=== PATIENT | female | born 1985 | race Caucasian/White ===

== ENCOUNTER 2017-03-11 13:54 | Emergency (ER) | payer OTHER ==
[2017-03-11 14:07] VITALS: BP 104/74
--- NOTE | 2017-03-11 14:08 | ED Physician Documentation ---
Sore Throat/Dental Pain - HISTORIAN Historian: patient - HPI Chief Complaint: Sore Throat Additional Information: 31yo white female who yesterday developed a sore throat. Today feels achy all over, has had some fever and chills. No cough noted. Had one episode of vomiting yesterday. No diarrhea noted. No nasla drainage. Son with URI illness last week. Denies pregenancy, has Polycystic ovarian disease. Associated Symptoms: fever (not sure how high), chills, sore throat, moderate. denies: unable to swallow, runny nose, congestion, R ear pain, L ear pain, cough - ROS CONST: other (Polycystic ovarian disease) CVS/RESP: none - PAST HX Past History: other (PCOD) Other History: none Immunizations: denies: influenza Allergies/Adverse Reactions: Allergies Allergy/AdvReac Type Severity Reaction Status Date / Time No Known Allergies Allergy Verified 03/11/17 14:06 Home Medications: Ambulatory Orders Medication Instructions Recorded Amoxicillin [Trimox] 500 mg PO TID #30 capsule 03/11/17 - SOCIAL HX Smoking History: non-smoker Alcohol Use: rarely Drug Use: none - FAMILY HX Family History: No - VITAL SIGNS Vital Signs: Vital Signs Temp Pulse Resp BP Pulse Ox 130/68 03/17/15 00:10 - REVIEWED ASSESSMENTS Nursing Assessment Reviewed: Yes Vitals Reviewed: Yes Sore throat Physical Exam - EXAM General Appearance: alert, mild distress Head/Neck: trachea midline, cervical lymphadenopathy, anterior Eyes: eyes nml inspection Mouth/Throat: lips nml, gums nml, no air way problems, pharyngeal erythema. No : tonsillar exudate Ear/Nose: nml inspection (typanic scarring) Respiratory: no resp. distress, breath sounds nml, respiratory distress CVS: reg. rate & rhythm, heart sounds nml Skin: warm/dry, normal color Neuro/Psych: oriented x3, mood/affect nml Discharge Clincal Impression: Strep pharyngitis Referrals: Primary Doctor,No [Primary Care Provider] - 2 Days Additional Instructions: Drink a lot of fluids, gargle with salt water, take Tylenol or Ibuprofen to help with the pain. Take Amoxil until gone. Condition: Stable Disposition: HOME, SELF-CARE Decision to Admit: NO Date of Decison to Admit: 03/11/17 Decision Time: 14:15
== END 2017-03-11 14:19 | disposition home or self-care (01) ==
LOC: ED 13:54
DX: J02.0 Streptococcal pharyngitis (principal)
CPT/HCPCS: 87880; 99282

== ENCOUNTER 2017-03-20 13:58 | Emergency (ER) | payer OTHER ==
--- NOTE | 2017-03-20 14:39 | ED Physician Documentation ---
Abdominal Pain - HISTORIAN Historian: patient - HPI Stated Complaint: Abdominal pain Chief Complaint: Abdominal Pain Onset: hours (10) Duration: constant, worse Timing: still present Context: denies: out of country travel, bad food, recent trauma Severity: moderate Quality: pain, burning, sharp Associated Symptoms: fever. denies: chills, nausea, vomiting, diarrhea Exacerbated by: nothing Relieved by: nothing Further Comments: yes (states that her pain started in early am . She states the pain started RUQ and has moved over the entire abdomen and now is a dull burning over left side and lower pelvis. She has had a fever of 101. She did have a bowel movement this am and it was a pressure feeling with bowel movement and urination) - ROS CONST: no problems GI/: denies: constipation CVS/RESP: denies: shortness of breath, cough MS/SKIN/LYMPH: denies: rash, recent injury NEURO/PSYCH: denies: headache, light-headedness - SOCIAL HX Smoking History: non-smoker Alcohol Use: none Drug Use: none - FAMILY HX Family History: none - PAST HX Past History: none Ischemic Bowel Risk Factors: none Other History: none Surgeries/Procedures: Immunizations: UTD Home Medications: Ambulatory Orders Medication Instructions Recorded NK [NK] 03/20/17 Allergies/Adverse Reactions: Allergies Allergy/AdvReac Type Severity Reaction Status Date / Time No Known Allergies Allergy Verified 03/20/17 14:07 - VITAL SIGNS Vital Signs: Vital Signs Temp Pulse Resp BP Pulse Ox 99.1 F 90 18 147/89 99 03/20/17 14:00 03/20/17 14:00 03/20/17 14:00 03/20/17 14:00 03/20/17 14:00 - REVIEWED ASSESSMENTS Nursing Assessment Reviewed: Yes Vitals Reviewed: Yes Progress - Progress Progress: 1457: pain is still as 7 on 1-10 although did "kick it some" DG 1523: Pain is less sharp but still 7 on scale of 1/10. Results for tests discussed. Findings are likely due to PCOS and she agreed she had already called her specialist although they cannot get her in until Apr 09 and she will need to see care prior to this appt. DG 1539: Pain has changed to a "barely" and she is sleeping quietly in the room. She is requesting possible Vicodin and home she will follow up with PCOS specialist. DG ED Results Lab/Radiology - Lab Results Lab Results: Lab Results 03/20/17 03/20/17 14:31 14:17 WBC 7.40 K/ul K/ul (4.00-12.00) RBC 4.18 M/ul M/ul (3.90-5.20) Hgb 10.3 g/dL L g/dL (12.0-16.0) Hct 35.0 % % (34.5-46.5) MCV 83.7 fl fl (80.0-100.0) MCH 24.7 pg L pg (28.0-34.0) MCHC 29.4 g/dL L g/dL (30.0-36.0) RDW 14.6 % H % (11.3-14.3) Plt Count 284 K/mm3 K/mm3 (130-400) Sodium 141 mmol/L mmol/L (136-145) Potassium 4.1 mmol/L mmol/L (3.5-5.1) Chloride 101 mmol/L mmol/L (98-107) Carbon Dioxide 26 mmol/L mmol/L (22-30) BUN 12 mg/dL mg/dL (7-17) Creatinine 0.90 mg/dL mg/dL (0.52-1.04) Estimated Creat Clear 188 Est GFR ( Amer) > 60 (60 - ) Est GFR (Non-Af Amer) > 60 (60 - ) Glucose 81 mg/dL mg/dL (74-106) Calcium 9.1 mg/dL mg/dL (8.4-10.2) Total Bilirubin 0.7 mg/dL mg/dL (0.2-1.3) AST 14 U/L L U/L (15-46) ALT 28 U/L U/L (13-69) Alkaline Phosphatase 62 U/L U/L (38-126) Total Protein 7.2 g/dL g/dL (6.3-8.2) Albumin 4.0 g/dL g/dL (3.5-5.0) Lipase 159 U/L U/L (23-300) - Radiology Radiology Impressions: Examination: CT Abdomen/pelvis History: BILAT PELVIC PAIN (Hx) / PAIN (DICOM Hx) Comparison exams: None available Technique: CT Abdomen/pelvis without IV protocol. Findings: Liver, spleen, adrenals, pancreas, kidneys are without gross irregularity given exam technique. Surgical clips gallbladder fossa. No suspicious renal calcifications. Ureters are nondilated in their course through the abdomen and pelvis. No central calcifications. Bladder margin within normal limits. Abdominal aorta without aneurysm or peripheral atherosclerotic disease. Cardiac silhouette is not enlarged. No pericardial effusion. Bowel unopacified limiting evaluation. No abnormal dilation. Stool within the large bowel limiting sensitivity. No mesenteric inflammatory changes or free fluid. Appendix is visualized and is without inflammatory changes. Osseous structures within normal limits. Lung bases without infiltrate. No effusion. Impression: No abdominal mass or acute inflammatory process. No abnormal bowel dilation or inflammation. No suspicious renal calcifications or abnormal ureteric dilation. No lung base consolidation or effusion. Given patient's reported symptoms, consider obtaining pelvic ultrasound to further evaluate if clinically warranted. Electronically signed on Mar 20, 2017 3:01:31 PM WINDING INSPECTOR AND TESTER by: Maury Thrasher - Orders Orders: ED Orders Category Date Time Status Place IV Lock 1T Care 03/20/17 14:[address] ABD & PELVIS W/O CON Stat Exams 03/20/17 Completed CBC/PLATELET/DIFF Stat Lab 03/20/17 14:17 Completed CMP Stat Lab 03/20/17 14:31 Completed LIPASE Stat Lab 03/20/17 14:31 Completed UA W/MICRO IF INDICATED Routine Lab 03/20/17 14:18 Ordered 0.9 % Sodium Chloride [Normal Saline] 1,000 ml Med 03/20/17 14:17 Discontinued IV Q1H HYDROmorphone HCL/PF [Dilaudid] Med 03/20/17 15:12 Discontinued 1 mg IVP NOW ONE fentaNYL CITRATE/PF [Duragesic] Med 03/20/17 14:19 Discontinued 50 mcg IVP NOW ONE Abdominal Pain Physical Exam - Physical Exam General Appearance: alert, mild distress EENT: eye inspection normal RESPIRATORY: no resp distress, chest non-tender, breath sounds normal CVS: reg rate & rhythm, heart sounds normal, equal pulses, no murmur ABDOMEN: soft, no organomegaly, normal bowel sounds, no distension, non-tender, abnormal bowel sounds, increased BS, guarding. No: McBurney's point tenderne, rebound, distended SKIN: warm/dry, normal color EXTREMITIES: non-tender, normal range of motion, no evidence of injury, no edema NEURO: oriented X3, CN's nml as tested, motor nml, sensation nml, mood/affect nml, cognition normal Vital Signs: Vital Signs Temp Pulse Resp BP Pulse Ox 99.1 F 90 18 147/89 99 03/20/17 14:00 03/20/17 14:00 03/20/17 14:00 03/20/17 14:00 03/20/17 14:00 Discharge Clincal Impression: Abdominal pain Qualifiers: Abdominal location: generalized Qualified Code(s): R10.84 - Generalized abdominal pain Referrals: Primary Doctor,No [Primary Care Provider] - 2 Days Comments: Vicodin 5/325 mg take 1 by mouth every 8 hours as needed for pain Follow up with PCP or Specialist for U/S Return to PCP or ER for any concerns Disposition: 01 HOME, SELF-CARE Decision to Admit: NO Date of Decison to Admit: 03/20/17 Decision Time: 15:43
[2017-03-20] MEDS: fentaNYL CITRATE/PF 100 MCG/ 2ML AMP IVP ONE (14:42)
[2017-03-20] MEDS: 0.9 % SODIUM CHLORIDE 1,000 ML IV ONE (14:43)
[2017-03-20 15:03] LABS: MEAN CORPUSCULAR HEMOGLOBIN 24.7 pg (28.0-34.0); MEAN CORPUSCULAR VOLUME 83.7 fl (80.0-100.0)
--- NOTE | 2017-03-20 15:03 | Diagnostic Imaging Report ---
MOIRA HANSON [facility] [id number] [facility] [address] [place], [place]. [address] Report Submission Date: Mar 20, 2017 3:01:31 PM POWDER ROOM ATTENDANT Patient Study Name: BAILEY MUKHERJEE Date: Mar 20, 2017 2:31:19 PM POWDER ROOM ATTENDANT Modality Type: CT\SR Gender: F Description: CT ABD & PELVIS W/O CO : 83 Institution: [facility] Physician: MOIRA HANSON Examination: CT Abdomen/pelvis History: BILAT PELVIC PAIN (Hx) / PAIN (DICOM Hx) Comparison exams: None available Technique: CT Abdomen/pelvis without IV protocol. Findings: Liver, spleen, adrenals, pancreas, kidneys are without gross irregularity given exam technique. Surgical clips gallbladder fossa. No suspicious renal calcifications. Ureters are nondilated in their course through the abdomen and pelvis. No central calcifications. Bladder margin within normal limits. Abdominal aorta without aneurysm or peripheral atherosclerotic disease. Cardiac silhouette is not enlarged. No pericardial effusion. Bowel unopacified limiting evaluation. No abnormal dilation. Stool within the large bowel limiting sensitivity. No mesenteric inflammatory changes or free fluid. Appendix is visualized and is without inflammatory changes. Osseous structures within normal limits. Lung bases without infiltrate. No effusion. Impression: No abdominal mass or acute inflammatory process. No abnormal bowel dilation or inflammation. No suspicious renal calcifications or abnormal ureteric dilation. No lung base consolidation or effusion. Given patient's reported symptoms, consider obtaining pelvic ultrasound to further evaluate if clinically warranted. Electronically signed on Mar 20, 2017 3:01:31 PM POWDER ROOM ATTENDANT by: Maury TORRES
[2017-03-20 15:07] LABS: eGFR (African) > 60; eGFR (Non-African) > 60
[2017-03-20] MEDS ORDERED: HYDROmorphone HCL/PF 1 MG/ML DISP.SYRIN IVP ONE (15:12)
[2017-03-20 15:49] VITALS: BP 118/84
[2017-03-20 15:56] LABS: HYPOCHROMASIA 1+ (NEGATIVE); MONOCYTES % 2 % (0-11); SEGMENTED NEUTROPHILS % 66 % (39-79)
[2017-03-20 17:03] LABS: APPEARANCE,URINE CLEAR (CLEAR); COLOR,URINE YELLOW (YELLOW); OCCULT BLOOD,URINE NEGATIVE (NEGATIVE); URINE HCG NEGATIVE (NEGATIVE); UROBILINOGEN URINE 0.2 Eu (0.2-1.0)
== END 2017-03-20 15:47 | disposition home or self-care (01) ==
LOC: ED 13:58
DX: R10.84 Generalized abdominal pain (principal)
CPT/HCPCS: 74176; 80053; 81002; 81025; 83690; 85025; 96365; 96375; 99283; J3010; J7030; S1016

== ENCOUNTER 2017-04-16 10:23 | Outpatient (CLI) | payer OTHER | END 2017-04-16 10:24 | LOC: LAB 10:23 | PROVIDERS: ATTEND Family Medicine | DX: Z02.83 Encounter for blood-alcohol and blood-drug test (principal) | CPT/HCPCS: 80377; G0481 ==

== ENCOUNTER 2017-04-17 11:08 | Emergency (ER) | payer OTHER ==
[2017-04-17] MEDS ORDERED: HYDROcodone /APAP 10/325 1 EACH TABLET PO ONE (12:02)
--- NOTE | 2017-04-17 12:36 | ED Physician Documentation ---
Headache - HISTORIAN Historian: patient, spouse - HPI Stated Complaint: headache Chief Complaint: Headache Additional Information: pt awoke yest am w/severe-worst h/a of life- frontal periorbital and ext to vertex head. has persisted yest last noct and today-rates08/26. pt does NOT have hx headaches of significants. she is light but not sound sensitive, h/a is throbbing-no peripheral neuropathy. Timing: other (awoke) Exposure To: none Severity: moderate, severe Quality: throbbing. denies: similar to previous Associated Symptoms: problems with vision (blurred), sensitivity to light, nausea. denies: fever, chills, sweating, vomiting, neck pain, stiffness, speech problems, trouble walking, numbness, dizziness, light-headedness Preceding Symptoms: visual disturbance Exacerbated By: light, movement. denies: noise Further Comments: yes (has taken several different otc meds w/no help) - ROS NEURO/PSYCH: denies: confusion, anxiety EYES/ENT: denies: sore throat, difficulty swallowing CVS/RESP: none. denies: chest pain, shortness of breath GI/: denies: abdominal pain, diarrhea, problems urinating - PAST HX Medical History: other (does not have menstrual periods-recently saw pcp w/ multi tests--only pos is pt is sl anemic-hb = 9) Allergies/Adverse Reactions: Allergies Allergy/AdvReac Type Severity Reaction Status Date / Time No Known Allergies Allergy Verified 04/17/17 11:33 Home Medications: Ambulatory Orders Medication Instructions Recorded NK [NK] 03/20/17 - SOCIAL HX Smoking History: non-smoker Alcohol Use: none Drug Use: none - Family HX Family History: none - VITAL SIGNS Vital Signs: Vital Signs Temp Pulse Resp BP Pulse Ox 98.3 F 86 16 114/64 99 04/17/17 11:18 04/17/17 11:18 04/17/17 11:18 04/17/17 11:18 04/17/17 11:18 - REVIEWED ASSESSMENTS Nursing Assessment Reviewed: Yes Vitals Reviewed: Yes ED Results Lab/Radiology - Orders Orders: ED Orders Category Date Time Status Place IV Lock 1T Care 04/17/17 13:[address] BRAIN W/O CONTRAST Stat Exams 04/17/17 Completed 0.9 % Sodium Chloride [Normal Saline] 1,000 ml Med 04/17/17 13:25 Active IV Q2H 0.9 % Sodium Chloride [Normal Saline] 500 ml Med 04/17/17 13:35 Discontinued IV .STK-MED Dexamethasone Sod Phosphate [Decadron] Med 04/17/17 13:31 Discontinued 4 mg IVP NOW ONE HYDROcodone /APAP 10/325 [Rough And Ready 10/325] Med 04/17/17 12:02 Discontinued 1 each PO NOW ONE Ketorolac Tromethamine [Toradol] Med 04/17/17 13:30 Discontinued 30 mg IVP NOW ONE Magnesium Sulfate Med 04/17/17 13:21 Discontinued 1 gm .ROUTE .STK-MED ONE Magnesium Sulfate Med 04/17/17 13:35 Discontinued 1 gm .ROUTE .STK-MED ONE Magnesium Sulfate 2 gm Med 04/17/17 13:26 Discontinued Dextrose 5 % in Water [D5w] 100 ml IV NOW Metoclopramide HCl [Reglan] Med 04/17/17 13:32 Discontinued 5 mg PO NOW ONE Headache Physical Exam - EXAM General Appearance: moderate distress EENT: no facial swelling, eyes nml inspection. No: tender temporal artery Neck: normal inspection Respiratory: chest non-tender, breath sounds normal CVS: reg. rate & rhythm, heart sounds nml Abdomen: non-tender, no distention Skin: color nml, no rash. No: cyanosis, diaphoresis, pallor, ecchymosis Extremitites: non-tender, normal range of motion - NEURO/PSYCH Higher Functions: alert, oriented x3, mood/affect nml Sensorimotor: motor nml, sensation nml Discharge Clincal Impression: headache uncertain etiology Referrals: Primary Doctor,No [Primary Care Provider] - 2 Days Condition: Good Disposition: 01 HOME, SELF-CARE Decision to Admit: NO Decision Time: 14:27
[2017-04-17] MEDS ORDERED: MAGNESIUM SULFATE 1 GM/2ML VIAL ONE ×2 (13:21→13:35)
[2017-04-17] MEDS ORDERED: 0.9 % SODIUM CHLORIDE 1,000 ML IV ONE (13:25)
[2017-04-17] MEDS ORDERED: MAGNESIUM SULFATE 2 GM in DEXTROSE 5 % IN WATER 100 ML IV STA ×2 (13:26)
[2017-04-17] MEDS ORDERED: KETOROLAC TROMETHAMINE 30 MG/1ML VIAL IVP ONE (13:30)
[2017-04-17] MEDS ORDERED: DEXAMETHASONE SOD PHOS 4 MG/ML VIAL IVP ONE (13:31)
[2017-04-17] MEDS ORDERED: METOCLOPRAMIDE HCL 5 MG TABLET PO ONE (13:32)
[2017-04-17] MEDS ORDERED: 0.9 % SODIUM CHLORIDE 500 ML IV ONE (13:35)
--- NOTE | 2017-04-17 13:45 | Diagnostic Imaging Report ---
MICHEAL AWAN [facility] [address] [facility] [address] [place], [place]. [address] Report Submission Date: Apr 17, 2017 12:52:43 PM PATIENT CASE MANAGER Patient Study Name: BAILEY MUKHERJEE Date: Apr 17, 2017 12:20:10 PM PATIENT CASE MANAGER Modality Type: CT\SR Gender: F Description: CT HEAD W/O CONTRAST : 83 Institution: [facility] Physician: MICHEAL AWAN Examination: CT head without contrast History: CT HEAD W/O, HEADACHE X2 DAYS, LIGHT SENSITIVE, NO HX OF MIGRAINES (Hx ) / HEADACHE (DICOM Hx) Comparison exam: None available Technique: Noncontrast head CT protocol. Findings: Ventricles and sulci are appropriate for patient age. Cerebrocerebellar parenchyma demonstrates normal attenuation. No evidence for parenchymal hemorrhage. No evidence for mass or mass effect. No midline shift. No extra axial fluid collections. Partial visualization of the paranasal sinuses , mastoid air cells, orbits, skull and scalp without gross irregularity. Impression: No acute parenchymal process. No hemorrhage. Electronically signed on Apr 17, 2017 12:52:43 PM PATIENT CASE MANAGER by: Maury TORRES
[2017-04-17 14:49] VITALS: BP 111/69
== END 2017-04-17 14:48 | disposition home or self-care (01) ==
LOC: ED 11:08
DX: R51 Headache (principal)
CPT/HCPCS: 70450; 96365; 96366; 96375; 99283; J1100; J1885; J3475; J7030; S1016

== ENCOUNTER 2017-07-01 16:42 | Emergency (ER) | payer OTHER ==
--- NOTE | 2017-07-01 17:30 | ED Physician Documentation ---
General Adult - HISTORIAN Historian: patient - HPI Stated Complaint: DIZZINESS Chief Complaint: Headache Additional Information: 32yo white female who states that she has daily headaches for one month at least several times a day for the last 6 months. No precipitating factor noted. Worse with light. Sometime a cool rag in a quiet helps. Have been getting nauseated with them. Today states that she lost consciousness. Woke up on the ground. Patient states that she was doing dishes when she felt lightheaded and then passed out. Has had several prevoius syncopal episodes. Has been eating drinking OK. Timing: still present (headache), pain lasting Severity: moderate - ROS CONST: no problems - PAST HX Past History: other (PTOS) Surgeries/Procedures: (x2) Allergies/Adverse Reactions: Allergies Allergy/AdvReac Type Severity Reaction Status Date / Time No Known Allergies Allergy Verified 07/01/17 16:56 Home Medications: Ambulatory Orders Medication Instructions Recorded NK [NK] 07/01/17 - SOCIAL HX Smoking History: non-smoker Alcohol Use: none Drug Use: none - FAMILY HX Family History: No - VITAL SIGNS Vital Signs: Vital Signs Temp Pulse Resp BP Pulse Ox 98.7 F 88 20 121/83 99 07/01/17 16:52 07/01/17 16:52 07/01/17 16:52 07/01/17 16:52 07/01/17 16:52 - REVIEWED ASSESSMENTS Nursing Assessment Reviewed: Yes Vitals Reviewed: Yes Progress - Progress Progress: 18:43 Patient is doing a little better with pain/headache. No nausea at this time. General Adult Physical Exam - PHYSICAL EXAM GENERAL APPEARANCE: mild distress EENT: eye inspection normal, ENT inspection normal, pharynx normal, no signs of dehydration NECK: normal inspection, thyroid normal, supple. No: lymphadenopathy, stiff neck RESPIRATORY: no resp distress, chest non-tender, breath sounds normal. No: wheezes, rales, rhonchi CVS: reg rate & rhythm, heart sounds normal, equal pulses, no murmur ABDOMEN: soft, no organomegaly, normal bowel sounds SKIN: warm/dry NEURO: oriented X3, mood/affect nml, cognition normal Discharge Clincal Impression: Syncope Qualifiers: Syncope type: unspecified Qualified Code(s): R55 - Syncope and collapse Headache Qualifiers: Headache type: other vascular headache Qualified Code(s): G44.1 - Vascular headache, not elsewhere classified Referrals: Primary Doctor,No [Primary Care Provider] - 2 Days Additional Instructions: Home and rest. Drink a lot of fluids to stay well hydrated. Start checking your pulse as we discussed. Follow up with your primary care provider for further possible testing. Take OTC analgesic for pain relief. Condition: Stable Disposition: 01 HOME, SELF-CARE Decision to Admit: NO Date of Decison to Admit: 07/01/17 Decision Time: 19:09
[2017-07-01] MEDS ORDERED: KETOROLAC TROMETHAMINE 60 MG/2 ML VIAL IM ONE (17:38)
[2017-07-01] MEDS ORDERED: KETOROLAC TROMETHAMINE 30 MG/1ML VIAL IVP ONE (17:53)
[2017-07-01 18:19] LABS: MEAN CORPUSCULAR HEMOGLOBIN 23.6 pg (28.0-34.0); MEAN CORPUSCULAR VOLUME 80.5 fl (80.0-100.0)
[2017-07-01 18:27] LABS: eGFR (African) > 60; eGFR (Non-African) > 60
[2017-07-01 18:48] LABS: SEGMENTED NEUTROPHILS % 66 % (39-79)
[2017-07-01 18:49] LABS: ANISOCYTOSIS 1+ (NEGATIVE); HYPOCHROMASIA 1+ (NEGATIVE); MONOCYTES % 3 % (0-11)
[2017-07-01 19:42] VITALS: BP 123/74
--- NOTE | 2017-07-02 06:38 | Diagnostic Imaging Report ---
CAMILLE MELENDREZ [facility] [address] [facility] [address] [place], [place]. [address] Report Submission Date: July 01, 2017 6:40:42 PM CDT Patient Study Name: BAILEY MUKHERJEE Date: July 01, 2017 6:17:07 PM CDT Modality Type: CT\SR Gender: F Description: CT BRAIN W/O CONTRAST : 83 Institution: [facility] Physician: CAMILLE MELENDREZ Computed tomography head without contrast History: Frontal headache and syncope. Chronic migraines. Findings: Transverse brain sections are obtained without contrast and compared to the April 17, 2017 scan. Ventricles and sulci are normal in size. Callahan white differentiation is intact. There is no intracranial hemorrhage, mass effect, fluid collection, skull lesion. Visualized sinuses and mastoid air cells are clear. Impression: Normal. Electronically signed on July 01, 2017 6:40:42 PM CDT by: Reji TRORES
== END 2017-07-01 19:20 | disposition home or self-care (01) ==
LOC: ED 16:42
DX: G44.1 Vascular headache, not elsewhere classified (principal); R55 Syncope and collapse
CPT/HCPCS: 70450; 80053; 85025; J1885; 96372; 96374; 99284; S1016